=== PATIENT | male | born 1960 | race Caucasian/White ===

== ENCOUNTER 2020-08-05 06:19 | Inpatient (IN) | payer MEDICARE ==
[~2020-08-05] VITALS: Ht 172.7 cm; Wt 70.1 kg
[~2020-08-05 06:19] MED LIST: AZITHROMYCIN250 MG PO; PREDNISONE 20MG20 MG PO; VENTOLIN HFA IN18 GM INH
[2020-08-05 06:58] LABS: BASOPHIL 0.6 % (0-2); EOSINOPHIL 5.7 % (0-5); HCT 51.4 % (42.0-52.0); HGB 15.7 g/dl (13.2-18.0); MCH 29.2 pg (25.0-31.0); MCHC 30.5 g/dL (32.0-36.0); MCV 95.5 fL (78.0-100.0); MONOCYTE 7.3 % (0-12); MPV 8.8 fL (6.0-9.5); NEUTROPHIL 73.2 % (41-80); NRBC 0; PLT 404 K/uL (150-400); RBC 5.38 M/uL (4.70-6.00); RDW 12.7 % (11.5-14.0); WBC 12.7 K/uL (4.0-10.5)
[2020-08-05 07:14] LABS: LACTIC ACID 0.7 mmol/L (0.4-1.9)
[2020-08-05 07:20] LABS: ALBUMIN 3.3 g/dL (3.4-5.0); BILIRUBIN - TOTAL 0.2 mg/dL (0.2-1.0); BUN/CREAT RATIO (CALC) 10.3 RATIO; CREATININE 0.58 mg/dL (0.67-1.17); GLOBULIN (CALCULATION) 4.2 g/dL; POTASSIUM 4.3 mmol/L (3.5-5.1); TOTAL PROTEIN 7.5 g/dL (6.4-8.2)
[2020-08-05 08:17] LABS: CORONAVIRUS 2019 SARS-COV-2 NEGATIVE (NEGATIVE); INFLUENZA A NAA NEGATIVE (NEGATIVE)
[2020-08-05] MEDS ORDERED: ANORO ELLIPTA1 EACH INH (13:22)
[2020-08-05 16:36] LABS: BILIRUBIN NEGATIVE (NEGATIVE); BLOOD NEGATIVE Ery/uL (NEGATIVE); CLARITY CLEAR (CLEAR); COLOR YELLOW (YELLOW); GLUCOSE (U) NORMAL (NORMAL); LEUKOCYTES NEGATIVE Leu/uL (NEGATIVE); NITRITE NEGATIVE (NEGATIVE); PROTEIN NEGATIVE (NEGATIVE); SPECIFIC GRAVITY <=1.005 (1.001-1.030); UROBILINOGEN 0.2 mg/dL (0.2-1.0)
--- NOTE | 2020-08-06 09:35 | NUR ---
LIVES WITH A FAMILY MEMBER; HOME 02 AT 2 LITERS;PLEASE ADVISE OF ANY DISCHARGE NEEDS
[2020-08-07 05:04] LABS: BASOPHIL 0.1 % (0-2); EOSINOPHIL 0 % (0-5); HCT 46.5 % (42.0-52.0); HGB 14.5 g/dl (13.2-18.0); LYMPHOCYTE 7.4 % (15-48); MCH 29.3 pg (25.0-31.0); MCHC 31.2 g/dL (32.0-36.0); MCV 93.9 fL (78.0-100.0); MONOCYTE 4.7 % (0-12); MPV 8.9 fL (6.0-9.5); NEUTROPHIL 87.4 % (41-80); NRBC 0; PLT 414 K/uL (150-400); RBC 4.95 M/uL (4.70-6.00); RDW 13.1 % (11.5-14.0); WBC 16.7 K/uL (4.0-10.5)
[2020-08-07 05:09] LABS: BUN/CREAT RATIO (CALC) 18.3 RATIO; CREATININE 0.6 mg/dL (0.67-1.17); POTASSIUM 4.3 mmol/L (3.5-5.1)
[2020-08-07] MEDS ORDERED: PREDNISONE 20MG20 MG PO (11:24)
--- NOTE | 2020-08-07 12:32 | NUR ---
REQUESTED O2 TRAVEL T[employer] AND HOME CONCENTRATOR FOR PT. DC/ TODAY.
--- NOTE | 2020-08-07 13:33 | NUR ---
MET WITH PT. TO SIGN CHOICE FORM. HE REQUESTED [facility] FOR HOME O2.
--- NOTE | 2020-08-07 16:03 | NUR ---
PT ESCORTED TO EXIT VIA WHEELCHAIR UPON ARRIVAL OF O2 SMALL'S PER DC HOME
== END 2020-08-07 15:45 | disposition home or self-care (01) | DRG 189 ==
LOC: FER 06:19 → FTCU 09:20 → FER 11:10 → FTCU 08-06 07:17
PROVIDERS: Emergency Medicine; ADMIT Internal Medicine
DX: J96.21 Acute and chronic respiratory failure with hypoxia (principal); J44.1 Chronic obstructive pulmonary disease with (acute) exacerbation; J96.22 Acute and chronic respiratory failure with hypercapnia; R59.0 Localized enlarged lymph nodes; Z20.822 Contact with and (suspected) exposure to COVID-19; F17.210 Nicotine dependence, cigarettes, uncomplicated
CPT/HCPCS: 36415; 36600; 71045; 71275; 80048; 80053; 81003; 82150; 82803; 83605; 84145; 84484; 85025; 87040; 87088; 93005; 94640; 94660; 94664; 94760; J1650; J2543; J2920; J2930; Q9967; U0002

== ENCOUNTER 2021-01-21 05:21 | Inpatient (IN) | payer MEDICARE, MEDICAID ==
[~2021-01-21] VITALS: Ht 170.2 cm; Wt 77.6 kg
[~2021-01-21 05:21] MED LIST changes: +ANORO ELLIPTA1 EACH INH
[2021-01-21 06:36] LABS: BASOPHIL 0.9 % (0-2); EOSINOPHIL 5.7 % (0-5); HCT 43.9 % (42.0-52.0); HGB 13.9 g/dl (13.2-18.0); LYMPHOCYTE 26.3 % (15-48); MCH 31.3 pg (25.0-31.0); MCHC 31.7 g/dL (32.0-36.0); MCV 98.9 fL (78.0-100.0); MONOCYTE 7.2 % (0-12); MPV 8.9 fL (6.0-9.5); NEUTROPHIL 59.3 % (41-80); NRBC 0; PLT 412 K/uL (150-400); RBC 4.44 M/uL (4.70-6.00); WBC 6.7 K/uL (4.0-10.5)
[2021-01-21 06:57] LABS: ALBUMIN 3.4 g/dL (3.4-5.0); BILIRUBIN - TOTAL 0.3 mg/dL (0.2-1.0); BUN/CREAT RATIO (CALC) 11.1 RATIO; CREATININE 0.72 mg/dL (0.67-1.17); POTASSIUM 3.6 mmol/L (3.5-5.1); TOTAL PROTEIN 7.4 g/dL (6.4-8.2)
[2021-01-21 07:01] LABS: LACTIC ACID 3.4 mmol/L (0.4-1.9)
[2021-01-21 07:08] LABS: PRO-BNP 96 pg/mL (<125)
[2021-01-23 06:16] LABS: BASOPHIL 0.2 % (0-2); EOSINOPHIL 0.1 % (0-5); HCT 41.2 % (42.0-52.0); HGB 13.3 g/dl (13.2-18.0); LYMPHOCYTE 11.8 % (15-48); MCH 31.3 pg (25.0-31.0); MCHC 32.3 g/dL (32.0-36.0); MCV 96.9 fL (78.0-100.0); MONOCYTE 5.3 % (0-12); MPV 9.1 fL (6.0-9.5); NEUTROPHIL 82.1 % (41-80); NRBC 0; PLT 420 K/uL (150-400); RBC 4.25 M/uL (4.70-6.00); RDW 12.4 % (11.5-14.0)
[2021-01-23 06:20] LABS: WBC 14.6 K/uL (4.0-10.5)
[2021-01-23 06:56] LABS: BUN/CREAT RATIO (CALC) 14.7 RATIO; CREATININE 0.68 mg/dL (0.67-1.17); POTASSIUM 4.4 mmol/L (3.5-5.1)
[2021-01-23] MEDS ORDERED: PREDNISONE 20MG20 MG PO (09:25)
[2021-01-23] MEDS ORDERED: ZITHROMAX500 MG PO (09:26)
--- NOTE | 2021-01-23 13:40 | NUR ---
01/23/21 Patient lives at home with his father. He has home 02. No discharge planning needs are anticipated.
== END 2021-01-23 11:00 | disposition home or self-care (01) | DRG 189 ==
LOC: FER 05:21 → FMS 08:04
PROVIDERS: Emergency Medicine Emergency Medical Services; ADMIT Internal Medicine
DX: J96.22 Acute and chronic respiratory failure with hypercapnia (principal); J44.1 Chronic obstructive pulmonary disease with (acute) exacerbation; F17.210 Nicotine dependence, cigarettes, uncomplicated; J96.11 Chronic respiratory failure with hypoxia; Z20.822 Contact with and (suspected) exposure to COVID-19; Z79.51 Long term (current) use of inhaled steroids; Z99.81 Dependence on supplemental oxygen; Z87.01 Personal history of pneumonia (recurrent); Z98.890 Other specified postprocedural states
CPT/HCPCS: 36415; 36600; 71045; 71275; 80048; 80053; 82803; 83605; 83880; 84145; 84484; 85025; 85379; 87040; 93005; 94640; 94664; 96365; 96367; 96375; J0456; J0696; J1650; J2920; J2930; J7050; Q9967; U0002

== ENCOUNTER 2021-09-18 10:51 | Inpatient (IN) | payer OTHER ==
[~2021-09-18] VITALS: Ht 170.2 cm; Wt 78.1 kg
[~2021-09-18 10:51] MED LIST changes: +ZITHROMAX500 MG PO
[2021-09-18 12:52] LABS: BASOPHIL 0.6 % (0-2); EOSINOPHIL 6.7 % (0-5); HCT 46.4 % (42.0-52.0); HGB 14.5 g/dl (13.2-18.0); LYMPHOCYTE 19.8 % (15-48); MCH 29.3 pg (25.0-31.0); MCHC 31.3 g/dL (32.0-36.0); MCV 93.7 fL (78.0-100.0); MONOCYTE 9.4 % (0-12); MPV 9.2 fL (6.0-9.5); NEUTROPHIL 63.3 % (41-80); NRBC 0; PLT 335 K/uL (150-400); RBC 4.95 M/uL (4.70-6.00); RDW 12.3 % (11.5-14.0); WBC 9.9 K/uL (4.0-10.5)
[2021-09-18 12:56] LABS: INR 1.11 (0.9-1.2); PROTHROMBIN TIME 13.7 SECONDS (11.8-13.4)
[2021-09-18 12:57] LABS: PTT 27.6 SECONDS (24.4-34.7)
[2021-09-18 12:58] LABS: D-DIMER < 0.27 ug/mLFEU (0.00-0.41)
[2021-09-18 13:07] LABS: ALBUMIN 4.1 g/dL (3.4-5.0); BILIRUBIN - TOTAL 0.3 mg/dL (0.2-1.0); BUN/CREAT RATIO (CALC) 14.3 RATIO; CREATININE 0.84 mg/dL (0.67-1.17); GLOBULIN (CALCULATION) 3.5 g/dL; POTASSIUM 4.2 mmol/L (3.5-5.1); TOTAL PROTEIN 7.6 g/dL (6.4-8.2)
[2021-09-18 13:15] LABS: LACTIC ACID 0.8 mmol/L (0.4-1.9)
[2021-09-18 14:14] LABS: BILIRUBIN NEGATIVE (NEGATIVE); BLOOD NEGATIVE Ery/uL (NEGATIVE); CLARITY CLEAR (CLEAR); COLOR YELLOW (YELLOW); GLUCOSE (U) NORMAL (NORMAL); LEUKOCYTES NEGATIVE Leu/uL (NEGATIVE); NITRITE NEGATIVE (NEGATIVE); PROTEIN NEGATIVE (NEGATIVE); SPECIFIC GRAVITY 1.025 (1.001-1.030); UROBILINOGEN 0.2 mg/dL (0.2-1.0)
[2021-09-19 05:17] LABS: BASOPHIL 0.6 % (0-2); EOSINOPHIL 6.9 % (0-5); HCT 41.2 % (42.0-52.0); HGB 12.9 g/dl (13.2-18.0); LYMPHOCYTE 22.6 % (15-48); MCH 29.2 pg (25.0-31.0); MCHC 31.3 g/dL (32.0-36.0); MCV 93.2 fL (78.0-100.0); MONOCYTE 8.9 % (0-12); NEUTROPHIL 60.6 % (41-80); NRBC 0; PLT 274 K/uL (150-400); RBC 4.42 M/uL (4.70-6.00); RDW 12.4 % (11.5-14.0); WBC 11.4 K/uL (4.0-10.5)
[2021-09-19 05:33] LABS: BUN/CREAT RATIO (CALC) 13.4 RATIO; CREATININE 0.67 mg/dL (0.67-1.17); POTASSIUM 3.5 mmol/L (3.5-5.1)
[2021-09-20 03:58] LABS: BASOPHIL 0.4 % (0-2); HCT 38.3 % (42.0-52.0); LYMPHOCYTE 23.6 % (15-48); MCH 29.1 pg (25.0-31.0); MCHC 31.3 g/dL (32.0-36.0); MONOCYTE 8.9 % (0-12); MPV 9.2 fL (6.0-9.5); NEUTROPHIL 61.8 % (41-80); NRBC 0; PLT 268 K/uL (150-400); RBC 4.12 M/uL (4.70-6.00); RDW 12.4 % (11.5-14.0); WBC 11.3 K/uL (4.0-10.5)
[2021-09-20 04:51] LABS: BUN/CREAT RATIO (CALC) 10.9 RATIO; CREATININE 0.64 mg/dL (0.67-1.17); POTASSIUM 3.6 mmol/L (3.5-5.1)
[2021-09-20 04:54] LABS: IRON % SATURATION 32.3 %SAT (20-50)
[2021-09-20] MEDS ORDERED: MUCINEX 600MG600 MG PO ×2 (11:46→13:36)
[2021-09-20] MEDS ORDERED: SYMBICORT 80-10.2 GM INH ×2 (11:46→13:36)
[2021-09-20] MEDS ORDERED: TESSALON PERLE100 MG PO ×2 (11:46→13:36)
[2021-09-20] MEDS ORDERED: VIBRAMYCIN100 MG PO ×2 (11:46→13:36)
[2021-09-20] MEDS ORDERED: PREDNISONE 20MG20 MG PO ×2 (11:46→13:36)
[2021-09-20] MEDS ORDERED: VENTOLIN HFA IN18 GM INH (11:46)
[2021-09-20] MEDS ORDERED: SPIRIVA 18MCG18 MCG INH ×2 (11:47→13:36)
[2021-09-21] MEDS ORDERED: FLOVENT HFA12 G1 INH (10:04)
[2021-09-21] MEDS ORDERED: ANORO ELLIPTA1 EACH INH (10:04)
== END 2021-09-21 10:35 | disposition home or self-care (01) | DRG 193 ==
LOC: FER 10:51 → FOFB 14:21 → FMS 09-20 08:02
PROVIDERS: Nurse Practitioner Family; ADMIT Family Medicine
DX: J18.9 Pneumonia, unspecified organism (principal); I21.A1 Myocardial infarction type 2; J44.1 Chronic obstructive pulmonary disease with (acute) exacerbation; J44.0 Chronic obstructive pulmonary disease with (acute) lower respiratory infection; D64.9 Anemia, unspecified; Z20.822 Contact with and (suspected) exposure to COVID-19; R73.9 Hyperglycemia, unspecified; G47.00 Insomnia, unspecified; I27.20 Pulmonary hypertension, unspecified; Z87.891 Personal history of nicotine dependence; Z79.899 Other long term (current) drug therapy; I25.2 Old myocardial infarction
CPT/HCPCS: 36415; 36600; 71045; 80048; 80053; 81003; 82607; 82803; 83036; 83540; 83550; 83605; 84145; 84484; 85025; 85379; 85610; 85730; 87040; 93005; 94010; 94640; 94667; 94668; 94760; 94762; J1650; J1956; J7050; J7512; U0002